=== PATIENT | male | born 1960 ===

== ENCOUNTER 2016-12-07 15:34 | Emergency (ER) | payer MEDICAID ==
[2016-12-07 15:35] VITALS: BMI 28.1
[2016-12-07] MEDS ORDERED: Sodium Chloride 0.9% 1,000 ML IV ONE (17:08)
[2016-12-07 17:37] LABS: BASO # 0.1 K/uL (0.0-0.2); BASO % 0.8 % (0.0-2.0); EOS # 0.1 K/uL (0.0-0.7); HEMOGLOBIN 13.9 g/dL (12.0-18.0); LYMPH % 40.2 % (20.0-40.0); MEAN CELL VOLUME 95.5 fL (80.0-94.0); MEAN CORPUSCULAR HGB CONC 33.5 g/dL (33.0-37.0); MONO # 0.4 K/uL (0.0-0.8); MONO % 5.6 % (0.0-10.0); NEUT # 3.9 K/uL (1.8-7.0); NEUT % 52.4 % (50.0-75.0); RBC 4.34 Mil/uL (4.40-5.90); RED CELL DISTRIBUTION WIDTH 13.2 % (11.5-14.5); WHITE BLOOD COUNT 7.5 K/uL (4.8-10.8)
[2016-12-07] MEDS ORDERED: Sodium Chloride 0.9% 1,000 ML ONE (17:57)
[2016-12-07] MEDS ORDERED: Morphine 4 MG/ML VIAL ONE (17:57)
[2016-12-07 18:04] VITALS: PULSE 60
[2016-12-07 18:16] LABS: SQUAMOUS EPITHIAL < 1 /hpf (0-5); URINE BACTERIA RARE (<OCC); URINE BILIRUBIN NEGATIVE (NEGATIVE); URINE BLOOD NEGATIVE (NEGATIVE); URINE CLARITY Clear (Clear); URINE COLOR Yellow (YELLOW); URINE GLUCOSE (UA) NORMAL (Normal); URINE LEUKOCYTE ESTERASE NEG Leu/uL (Negative); URINE NITRATE NEGATIVE (NEGATIVE); URINE PROTEIN NEGATIVE (NEGATIVE); URINE UROBILINOGEN NORMAL mg/dL (0.2-1.0)
--- NOTE | 2016-12-07 18:32 | US ---
HISTORY: Right upper quadrant pain pain, epigastric pain, r/o gallstones COMPARISON: None. TECHNIQUE: Sonographic evaluation of the right upper quadrant of the abdomen. FINDINGS: LIVER: Measures 14.5 cm in length. There is diffuse increased echogenicity of the liver parenchyma. No mass. No intrahepatic bile duct dilatation. GALLBLADDER: Are small gallstones. No wall thickening, pericholecystic fluid or positive sonographic Hennessy's sign COMMON BILE DUCT: Measures 7.7 mm. No stones. No dilatation. PANCREAS: Unremarkable as visualized. No mass. No ductal dilatation. RIGHT KIDNEY: Measures 11.0 cm in length. Normal echogenicity. No calculus, mass, or hydronephrosis. AORTA: No aneurysmal dilatation. IVC: Unremarkable. OTHER FINDINGS: None . IMPRESSION: Cholelithiasis. No evidence of acute cholecystitis. Mild dilatation of the common bile duct. No evidence of choledocholithiasis. Hepatic steatosis.
[2016-12-07 18:59] LABS: ALBUMIN 4.5 g/dL (3.5-5.0)
[2016-12-07 19:02] LABS: ALB/GLOB RATIO 1.2 (1.0-2.1); ALT/SGPT 29 U/L (21-72); AST/SGOT 41 U/L (17-59); BLOOD UREA NITROGEN 22 mg/dL (9-20); GFR AFRICAN-AMERICAN > 60; GFR NON-AFRICAN AMERICAN > 60
[2016-12-07 19:03] LABS: CALCIUM 9.9 mg/dl (8.6-10.4)
[2016-12-07 19:29] VITALS: BP 169/90; RESP 16; TEMP 98.8; O2SAT 99
--- NOTE | 2016-12-07 19:38 | C.PDOC ---
History Of Present Illness 56 y/o male presents to the ED for evaluation of abdominal pain and nausea which began 2 days ago. Patient reports history of pancreatitis and notes his current symptoms are similar to prior (suspects prior pancreatitis was due to gallstones. He states he has previously been instructed to follow up witha surgeon, but has not done so. Patient denies fever, chills, vomiting, diarrhea, dysuria, hematuria. Time Seen by Provider: 12/07/16 16:27 Chief Complaint (Nursing): Abdominal Pain History Per: Patient History/Exam Limitations: no limitations Onset/Duration Of Symptoms: Days Current Symptoms Are (Timing): Still Present Severity: Mild Location Of Pain/Discomfort: Diffuse Radiation Of Pain To:: None Quality Of Discomfort: "Pain" Associated Symptoms: denies: Fever, Chills, Vomiting, Diarrhea, Urinary Symptoms (dysuria, hematuria ) Additional History Per: Patient Past Medical History Reviewed: Historical Data, Nursing Documentation, Vital Signs Vital Signs: Last Vital Signs Temp 98.8 F 12/07/16 19:28 Pulse 60 12/07/16 19:28 Resp 16 12/07/16 19:28 BP 169/90 H 12/07/16 19:28 Pulse Ox 99 12/07/16 20:37 - Medical History PMH: Depression, Diabetes, HTN, Hypercholesterolemia, Kidney Stones, Chronic Pain (right shoulder pain) Surgical History: No Surg Hx Family History: States: Diabetes - Social History Hx Tobacco Use: Yes Hx Alcohol Use: No (quit 2 years ago) Hx Substance Use: No - Immunization History Hx Influenza Vaccination: Yes Hx Pneumococcal Vaccination: Yes Review Of Systems Except As Marked, All Systems Reviewed And Found Negative. Constitutional: Negative for: Fever, Chills Cardiovascular: Negative for: Chest Pain, Palpitations Respiratory: Negative for: Cough, Shortness of Breath Gastrointestinal: Positive for: Nausea, Abdominal Pain. Negative for: Vomiting , Diarrhea Genitourinary: Negative for: Dysuria, Hematuria Physical Exam - Physical Exam Appears: Well, Non-toxic, Other (+mild painful distress ) Skin: Normal Color, Warm, Dry Head: Normacephalic Eye(s): bilateral: Normal Inspection Oral Mucosa: Moist Neck: Supple Cardiovascular: Rhythm Regular Respiratory: Normal Breath Sounds, No Rales, No Rhonchi, No Wheezing Gastrointestinal/Abdominal: Bowel Sounds, Soft, Tenderness ((+) LUQ, left periumbilical mild TTP ), No Guarding, No Rebound, No Other ((-) Hennessy's, (-) McBurney's) Back: Normal Inspection, No CVA Tenderness Extremity: Normal ROM Neurological/Psych: Oriented x3 Gait: Steady ED Course And Treatment - Laboratory Results Result Diagrams: 12/07/16 17:20 12/07/16 18:53 O2 Sat by Pulse Oximetry: 99 (on RA) Pulse Ox Interpretation: Normal - CT Scan/US US Abdomen Other Rad Studies (CT/US): Interpreted By Me, Read By Radiologist, Radiology Report Reviewed CT/US Interpretation: Accession No. : [id number]. Patient Name / ID : TERRY CURRAN / [id number]. Exam Date : 12/07/2016 17:30:41 ( Approved ). Study Comment : Sex / Age : M / [id number]. Creator : OBED CABRERA MD. Dictator : OBED CABRERA MD. Vp Medical : Citizenship Instructor : OBED CABRERA MD. Approver2 : Report Date : 12/07/2016 18:30:44. My Comment : . HISTORY: Right upper quadrant pain pain, epigastric pain, r/o gallstones. COMPARISON: None. TECHNIQUE: Sonographic evaluation of the right upper quadrant of the abdomen. FINDINGS: LIVER: Measures 14.5 cm in length. There is diffuse increased echogenicity of the liver parenchyma. No mass. No intrahepatic bile duct dilatation. GALLBLADDER: Are small gallstones. No wall thickening, pericholecystic fluid or positive sonographic Hennessy's sign. COMMON BILE DUCT: Measures 7.7 mm. No stones. No dilatation. PANCREAS: Unremarkable as visualized. No mass. No ductal dilatation. RIGHT KIDNEY: Measures 11.0 cm in length. Normal echogenicity. No calculus, mass, or hydronephrosis. AORTA: No aneurysmal dilatation. IVC: Unremarkable. OTHER FINDINGS: None . IMPRESSION : Cholelithiasis. No evidence of acute cholecystitis. Mild dilatation of the common bile duct. No evidence of choledocholithiasis. Hepatic steatosis. Progress Note: Blood work, UA, RUQ US ordered and reviewed. Patient given IV NS bolus, IV morphine. Reevaluation Time: 19:35 Reassessment Condition: Improved (On reassessment, patient is resting comfortably and states his pain has improved. On exam, abdomen is soft and nontender. Blood work and UA unremarkable, US shows gallstones without evidence of cholecystitis. Patient given Rx for pain medication, was instructed to avoid fatty/greeasy foods and follow up with general surgeon within 1 week. He understands he should return to ED if symptoms worsen.) Disposition Counseled Patient/Family Regarding: Studies Performed, Diagnosis, Need For Followup, Rx Given - Disposition Referrals: Lizett Antonio MD [Staff Provider] - Magali Fleming MD [Medical Doctor] - Disposition: HOME/ ROUTINE Disposition Time: 19:35 Condition: STABLE Additional Instructions: SEGUIMIENTO CON EL CIRUJANO DENTRO DE 1 SEMANA PARA EVALUACIN ADICIONAL USE MEDICAMENTOS PARA EL DOLOR AILEEN SEA NECESARIO DEVUELVA A LA MINOO DE EMERGENCIA SI LOS SNTOMAS EMPEORARAN Prescriptions: Acetaminophen with Codeine [Tylenol with Codeine #3 Tablet] 1 each PO Q6 PRN # 12 tablet PRN Reason: pain Instructions: Gallstones (ED) Print Language: CANADIAN - POA Present On Arrival: None - Clinical Impression Clinical Impression: Abdominal pain, Cholelithiasis - Scribe Statement The provider has reviewed the documentation as recorded by the Scribe (Ro Lyons) Provider Attestation: All medical record entries made by the Scribe were at my direction and personally dictated by me. I have reviewed the chart and agree that the record accurately reflects my personal performance of the history, physical exam, medical decision making, and the department course for this patient. I have also personally directed, reviewed, and agree with the discharge instructions and disposition.
== END 2016-12-07 19:42 | disposition home or self-care (01) ==
LOC: C.ER 15:34
DX: K80.20 Calculus of gallbladder without cholecystitis without obstruction (principal); R10.9 Unspecified abdominal pain
CPT/HCPCS: 76705; 80053; 81001; 83690; 85025; 96361; 96374; 99285; J2270; J7040

== ENCOUNTER 2017-01-19 00:27 | Emergency (ER) | payer MEDICAID ==
[2017-01-19 01:12] VITALS: BMI 24.3
[2017-01-19 01:18] VITALS: O2SAT 99
[2017-01-19 02:26] LABS: BASO % 0.7 % (0.0-2.0); EOS # 0.1 K/uL (0.0-0.7); EOS % 1.9 % (0.0-4.0); HEMATOCRIT 38.3 % (35.0-51.0); LYMPH # 3.1 K/uL (1.0-4.3); LYMPH % 48.5 % (20.0-40.0); MEAN CELL VOLUME 95.2 fL (80.0-94.0); MEAN CORPUSCULAR HEMOGLOBIN 32.5 pg (27.0-31.0); MEAN CORPUSCULAR HGB CONC 34.1 g/dL (33.0-37.0); MEAN PLATELET VOLUME 11.3 fL (7.2-11.7); MONO # 0.4 K/uL (0.0-0.8); MONO % 6.2 % (0.0-10.0); RED CELL DISTRIBUTION WIDTH 12.8 % (11.5-14.5); WHITE BLOOD COUNT 6.5 K/uL (4.8-10.8)
[2017-01-19 02:38] LABS: CHLORIDE 99 mmol/L (98-107); SODIUM 137 mmol/L (132-148)
[2017-01-19 02:40] LABS: AST/SGOT 24 U/L (17-59); BILIRUBIN,TOTAL 0.5 mg/dL (0.2-1.3); CARBON DIOXIDE 27 mmol/L (22-30); GFR AFRICAN-AMERICAN > 60
[2017-01-19 02:41] LABS: ALB/GLOB RATIO 1.3 (1.0-2.1); ALKALINE PHOSPHATASE 43 U/L (38-126); ALT/SGPT 33 U/L (21-72); BLOOD UREA NITROGEN 19 mg/dL (9-20); CALCIUM 9.4 mg/dl (8.6-10.4); GLUCOSE,RANDOM 115 mg/dL (75-110); TOTAL PROTEIN 6.9 g/dL (6.3-8.3)
--- NOTE | 2017-01-19 02:48 | C.PDOC ---
History Of Present Illness 56 year old male who presents to the ER with a complaint of left chest wall pain that began today. Patient states the pain is provoked by palpation of chest wall. Denies diaphoresis, SOB, nausea, or vomiting. Chief Complaint (Nursing): Chest Pain History Per: Patient History/Exam Limitations: no limitations Onset/Duration Of Symptoms: Hrs Current Symptoms Are (Timing): Still Present Associated Symptoms: denies: Nausea, Dyspnea, Diaphoresis Modifying Factors: None Exacerbating Factors: None Alleviating Factors: None Recent travel outside of the [place]: No Past Medical History Reviewed: Historical Data, Nursing Documentation, Vital Signs Vital Signs: Last Vital Signs Temp Pulse 53 L 01/19/17 01:15 Resp 16 01/19/17 01:15 BP 148/84 01/19/17 02:09 Pulse Ox 99 01/19/17 03:08 - Medical History PMH: Depression, Diabetes, HTN, Hypercholesterolemia, Kidney Stones, Chronic Pain (right shoulder pain) Surgical History: No Surg Hx Family History: States: Unknown Family Hx, Diabetes - Social History Hx Tobacco Use: Yes Hx Alcohol Use: No (quit 2 years ago) Hx Substance Use: No - Immunization History Hx Tetanus Toxoid Vaccination: Yes Hx Influenza Vaccination: Yes Hx Pneumococcal Vaccination: Yes Review Of Systems Constitutional: Negative for: Fever, Chills Cardiovascular: Negative for: Palpitations Respiratory: Negative for: Shortness of Breath Gastrointestinal: Negative for: Nausea, Vomiting Musculoskeletal: Positive for: Other (Chest wall pain) Neurological: Negative for: Weakness, Numbness Physical Exam - Physical Exam Appears: Non-toxic, No Acute Distress Skin: Normal Color, Warm, Dry Head: Atraumatic, Normacephalic Oral Mucosa: Moist Neck: Normal, Supple Chest: Symmetrical, Tenderness (To left anterior parasternal area) Cardiovascular: Rhythm Regular, No Murmur Respiratory: Normal Breath Sounds, No Rales, No Rhonchi, No Wheezing Gastrointestinal/Abdominal: Soft, No Tenderness Neurological/Psych: Oriented x3, Normal Speech, Normal Cognition ED Course And Treatment - Laboratory Results Result Diagrams: 01/19/17 02:19 01/19/17 02:19 ECG: Interpreted By Me, Viewed By Me ECG Rhythm: Sinus Bradycardia ECG Interpretation: Normal, No Acute Changes Interpretation Of ECG: Sinus bradycardia, normal tracings. Rate From EC O2 Sat by Pulse Oximetry: 99 Pulse Ox Interpretation: Normal - Radiology CXR: Interpreted by Me, Viewed By Me CXR Interpretation: Yes: No Acute Disease. No: Infiltrates, Cardiomegaly Progress Note: EKG and CXR ordered. Toradol administered. Disposition Counseled Patient/Family Regarding: Diagnosis - Disposition Referrals: [facility] [Outside] Disposition: HOME/ ROUTINE Disposition Time: 02:48 Condition: STABLE Prescriptions: Naproxen [Naprosyn Tab] 375 mg PO TIDPC #20 tab Instructions: Noncardiac Chest Pain (ED) Forms: [employer] (Norwegian) - POA Present On Arrival: None - Clinical Impression Clinical Impression: Chest pain, non-cardiac - Scribe Statement The provider has reviewed the documentation as recorded by the Scribe Jovany Dong All medical record entries made by the Scribe were at my direction and personally dictated by me. I have reviewed the chart and agree that the record accurately reflects my personal performance of the history, physical exam, medical decision making, and the department course for this patient. I have also personally directed, reviewed, and agree with the discharge instructions and disposition.
[2017-01-19 03:26] VITALS: BP 116/75; PULSE 68; RESP 18; TEMP 98.2
--- NOTE | 2017-01-19 08:14 | RAD ---
HISTORY: chest pain COMPARISON: 02/20/2015 TECHNIQUE: Chest PA and lateral FINDINGS: LUNGS: No interval active pulmonary disease. The overall interstitial lung markings appear borderline prominent no definite interval change or is perceived. PLEURA: No significant pleural effusion identified. No pneumothorax apparent. CARDIOVASCULAR: Normal heart size. Tortuous thoracic aorta OSSEOUS STRUCTURES: No significant abnormalities. VISUALIZED UPPER ABDOMEN: Normal. OTHER FINDINGS: None. IMPRESSION: No interval active disease.
--- NOTE | 2017-01-19 18:29 | CARD ---
APPROVED REPORT EKG Measurement Heart [id number] <Conclusion> Sinus bradycardia Otherwise normal ECG
== END 2017-01-19 03:26 | disposition home or self-care (01) ==
LOC: C.ER 00:27
DX: R07.89 Other chest pain (principal)
CPT/HCPCS: 71020; 80053; 84484; 85025; 85378; 93005; 96374; 99285; J1885

== ENCOUNTER 2018-09-01 09:46 | Emergency (ER) | payer MEDICAID ==
[2018-09-01 09:46] VITALS: BMI 24.3
[2018-09-01] MEDS ORDERED: Lidocaine 5% Patch TD STA (10:14)
[2018-09-01 10:21] VITALS: RESP 18; O2SAT 98
[2018-09-01] MEDS ORDERED: Lidocaine 5% Patch TD ONE (10:28)
--- NOTE | 2018-09-01 11:26 | C.PDOC ---
Time Seen by Provider: 09/01/18 10:09 Chief Complaint (Nursing): Hip Pain Past Medical History Vital Signs: Last Vital Signs Temp 98.9 F 09/01/18 09:52 Pulse 73 09/01/18 10:19 Resp 18 09/01/18 10:19 BP 161/108 H 09/01/18 10:19 Pulse Ox 98 09/01/18 10:19 - Medical History PMH: Depression, Diabetes, Gall Bladder Disease (GALLSTONES), HTN, Hypercholesterolemia, Kidney Stones, Pancreatitis, Chronic Kidney Disease, Chronic Pain (right shoulder pain) Family History: States: Unknown Family Hx, Diabetes - Social History Hx Tobacco Use: Yes Hx Alcohol Use: No (QUIT 2 years ago) Hx Substance Use: No - Immunization History Hx Tetanus Toxoid Vaccination: Yes Hx Influenza Vaccination: Yes (2017) Hx Pneumococcal Vaccination: Yes ED Course And Treatment O2 Sat by Pulse Oximetry: 98 Disposition Counseled Patient/Family Regarding: Diagnosis, Need For Followup, Rx Given - Disposition Referrals: [facility] [Outside] Disposition: HOME/ ROUTINE Disposition Time: 11:25 Condition: STABLE Prescriptions: Ibuprofen [Motrin] 600 mg PO TID #15 tab Forms: [facility] ([place] Islander), Gen Discharge Inst [place]er - POA Present On Arrival: Blood Incompatibility - Clinical Impression Clinical Impression: Hip pain
[2018-09-01 11:35] VITALS: BP 188/118; PULSE 76; TEMP 99.1
== END 2018-09-01 11:52 | disposition home or self-care (01) ==
LOC: C.ER 09:46
DX: M25.559 Pain in unspecified hip (principal); E78.00 Pure hypercholesterolemia, unspecified; I12.9 Hypertensive chronic kidney disease with stage 1 through stage 4 chronic kidney disease, or unspecified chronic kidney disease; N18.9 Chronic kidney disease, unspecified; E11.9 Type 2 diabetes mellitus without complications; Z72.0 Tobacco use